=== PATIENT | male | born 1965 | race American Indian/Alaskan Native ===

== ENCOUNTER 2018-03-05 09:18 | Day surgery (SDC) | payer OTHER ==
[2018-03-01 09:50] VITALS: BMI 40.6
[2018-03-05] MEDS ORDERED: Bupivacaine HCl 0.5% PF (30 ml) Inj ONE (12:01)
[2018-03-05] MEDS ORDERED: Lidocaine 1% 20 MG/2 ML PF AMP ONE (12:02)
[2018-03-05] MEDS ORDERED: Propofol 10 mg/ml Inj (20 ML) ONE (12:07)
[2018-03-05] MEDS ORDERED: Midazolam 2 MG/2 ML VIAL ONE (12:07)
[2018-03-05] MEDS ORDERED: Succinylcholine Chloride 20 mg/ml Syr (5 ml) IV ONE (12:11)
[2018-03-05] MEDS ORDERED: Rocuronium 10 mg/ml (5 ml) ONE (12:11)
[2018-03-05] MEDS: ceFAZolin IV 2 gm in Dextrose 2 GM/50 ML BAG IVPB ONE ×2 (12:25→12:35)
[2018-03-05] MEDS ORDERED: Neostigmine Methylsulfate 3mg/3ml Syringe IV ONE ×2 (12:48)
[2018-03-05] MEDS ORDERED: Bacitracin Ointment 30 GM TUBE ONE (12:49)
[2018-03-05] MEDS ORDERED: Oxycodone/Acetaminophen 5/325 mg Tab PO PRN (13:18)
[2018-03-05] MEDS: HYDROmorphone 0.5 mg/0.5 ml ISec IVP PRN ×3 (13:46→15:05)
[2018-03-05 15:56] VITALS: O2SAT 96
[2018-03-05 18:50] VITALS: BP 125/83; PULSE 105; RESP 20; TEMP 98.3
--- NOTE | 2018-03-06 00:15 | OP ---
PROCEDURE DATE: 03/05/2018 PREOPERATIVE DIAGNOSIS: Grade IV prolapse hemorrhoid. POSTOPERATIVE DIAGNOSIS: Grade IV prolapse hemorrhoid with small rectal polyp. PROCEDURE PERFORMED: Complex hemorrhoidectomy with excision of rectal polyp. SURGEON: Enrique Gabriel MD TYPE OF ANESTHESIA: General. ESTIMATED BLOOD LOSS: 30 mL. POSTOPERATIVE CONDITION: Stable. INDICATION FOR SURGERY: This is a 52-year-old male with a history of painful prolapse hemorrhoids who now will undergo surgical management. GROSS FINDINGS: There was a hemorrhoid in the right anterior position noted which was prolapsed, grade IV, and ulcerated. There was also associated proximal rectal polyp which was removed with the same specimen. DESCRIPTION OF PROCEDURE: The patient was taken to the operation room. General anesthesia was administered. The patient was placed in a prone lithotomy position. The buttocks were taped open. The rectal area was prepped and draped. A rectal retractor was inserted and a large right anterior hemorrhoid was grasped with two elisabeth clamps. It was ligated at its base using a heavy Monocryl suture. A trans elliptical incision was made surrounding the hemorrhoid and a small rectal polyp. They will remove that together and sent for specimen. There was a fair amount of bleeding which was controlled using the Bovie and also a larger blood vessel was apparent. Small flaps were raised and the mucosa was reapproximated in a tension free fashion by raising flaps and using running heavy Monocryl suture in double layer. The patient tolerated the procedure well and returned to recovery room in stable condition. Enrique Gabriel MD
== END 2018-03-05 18:55 | disposition home or self-care (01) ==
LOC: C.SDS 09:18
PROVIDERS: ATTEND Surgery
DX: K62.3 Rectal prolapse (principal); K64.3 Fourth degree hemorrhoids; I10 Essential (primary) hypertension
CPT/HCPCS: 46260; 82948; 88304; J0690; J1170; J1885; J2001; J2250; J2405; J2704; J2710; J3010